=== PATIENT | male | born 1935 | race Caucasian/White ===

== ENCOUNTER 2016-06-21 20:59 | Inpatient (IN) | payer MEDICARE, MEDICAID ==
[~2016-06-21] VITALS: Ht 170.2 cm; Wt 57.6 kg
[~2016-06-21 20:59] MED LIST: AMIODARONE200 MG; AMLODIPINE10 MG; LIPITOR10 MG; MEDROL 4MG. DOSE4 MG PO; QUINAPRIL20 MG
[2016-06-21 21:03] VITALS: BP 142/73
[2016-06-21] MEDS ORDERED: BISOPROLOL 5MG T5 MG PO (21:14)
[2016-06-21] MEDS ORDERED: AMLODIPINE BES10 MG PO (21:14)
[2016-06-21] MEDS ORDERED: QUINAPRIL40 MG PO (21:14)
[2016-06-21] MEDS ORDERED: ATORVASTATIN CA10 M1 PO (21:14)
[2016-06-21] MEDS ORDERED: ASPIRIN ADULT L81 M3 PO (21:15)
[2016-06-21 21:50] LABS: HEMOGLOBIN 10.3 g/dL (14.1-18.0); LYMPH % 22.5 % (10-50)
--- NOTE | 2016-06-21 22:04 | Emergency Room Report ---
History of Present Illness Time Seen by [id number] Presenting Problem in Triage Pt arrived:Walked Presenting Problem:PT COMPLAINING OF FEELING WEAK AND SHORT OF AIR. PT STATES THAT HE HAD A FLU AND PNEUMONIA SHOT LAST WEEK AND HAS NOT BEEN FEELING WELL SINCE THEN. PT STATES THAT HE HAS ALSO BEEN FALLING FREQUENTLY. PT DENIES ANY INJURIES. PT WITH OLD BRUISING TO HIS FACE THAT HE STATES HAPPENED 1 WEEK AGO. Onset of symptoms date/time:/ or onset unknown for:MEDICAL HX UNKNOWN Treatment Prior to Arrival: POSTING CLERK Provided by: Sepsis Risk Assessment: Temp: 98.2 B/P: 145/71 MAP: 96 Pulse: 63 Resp: 18 Recent fever? N Clinical Suspician of Infection? N Mental Status: 1 - Regular (Normal Baseline) Sepsis Risk:Low Sepsis Risk Have you (or family members/close friends) recently traveled outside the [place]? N If Yes, where/when: Have you had exposure to infectious disease within the past month? N TB? Other? Specify: Source patient, RN notes reviewed, family, old records Exam Limitations poor historian Comment pt with sob and leg edema with no chest pain or syncope but has falls - Cardiac Chest Pain Chest pain indicative of cardiac No Timing/Duration this evening Severity moderate ALLERGIES Coded Allergies: No Known Allergies (06/21/16) Home Medications Reported Medications BISOPROLOL FUMARATE (Bisoprolol 5MG) 5 MG PO DAILY #30 Amlodipine Besylate (Amlodipine Besylate) 10 MG PO DAILY #30 Quinapril Hcl (Quinapril HCl) 40 MG PO DAILY #30 Atorvastatin Calcium 10 MG PO DAILY #30 Aspirin (Aspirin EC) 81 MG PO DAILY #30 History Medical History General CAD? Yes Angina: No MA: No Hypertension? Yes Hyperlipidemia? Yes CHF? No DVT? No PE? No COPD? No Asthma? No Anemia? No GERD? No Gastric ulcers? No GI Bleed? No Hernia? No Thyroid Problems? No Hypothyroidism? No CVA? No Seizures? No Diabetes? No Renal Insuffiency? No End Stage Renal Disease? No UTI? No Stones? No BPH? No GB Disease: No Nephritic Syndrome? No Asplenia? No Hepatitis? No Sickle Cell Disease? No Arthritis? No Migraines? No Cataracts? No Glaucoma? No MRSA? No HIV? No TB? No Anxiety? No Depression? No Cancer? No More? No Immunization Hx DT/Tetanus NOT SURE Surgical Hx Previous Surgery?Y APPY >18 YRS AGO 5 BYPASS HEART SURGERY CARDIAC STENTS Family History Family Hx Diabetes No CAD No Hypertension No Cancer No TB No Social History Smoking Hx Smoker: Never Smoker Tobacco: No Type N/A Are you/the child exposed to second-hand smoke: No Alcohol Alcohol: No Drugs none Review of Systems All Other Systems Reviewed and Negative Constitutional denies fever Eyes denies drainage ENT denies: ear pain, epistaxis, throat pain. Respiratory denies cough, shortness of breath, denies wheezing Cardiovascular see HPI, denies chest pain, denies palpitations, denies syncope, other Gastrointestinal denies abdominal pain Genitourinary denies: dysuria, frequency, hesitancy. Musculoskeletal denies back pain, denies joint pain, denies joint swelling, denies neck pain Skin denies rash Psychiatric/Neurological denies headache, denies seizure Physical Exam Vital Signs Vital Signs Date Time Temp Pulse Resp B/P Pulse O2 O2 Flow FiO2 Ox Delivery Rate 06/21 2258 90 06/21 2257 65 18 130/68 90 06/21 2144 63 18 145/71 90 06/21 2142 67 18 145/71 92 06/21 2103 98.2 74 18 142/73 90 - WBC >12,000 or <4,000 or 10% bands? 2 or more SIRS Criteria Met? B/P:130/68 MAP:96 Creatinine >2.0? UA output<0.5ml/kg/hr for 2 hrs? Platelet count >100,000? Lactate >2.0mmol/1? INR >1.2 or PTT > than 60 sec? Evidence of Organ Dysfunction? Provider documented clinical suspician of infection? N Sepsis Criteria Count: 0 Sepsis Risk: Low Sepsis Risk General Appearance no apparent distress Eye Exam - bilateral eye PERRL, bilateral eye EOMI Ear, Nose, Throat normal ENT inspection Neck supple Respiratory Status No: respiratory distress. Lung Sounds bilateral: decreased breath sounds. 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 No Results/Orders Laboratory Tests 06/21/162251: Stool Occult Blood NEGATIVE 06/21/162124: Sodium 142, Potassium 4.9, Chloride 107, Carbon Dioxide 24, BUN 51 H, Creatinine 2.4 H, Estimated Creat Clear 20 L, Estimated GFR (MDRD) 26, Glucose 115 H, Calcium 8.3 L, Total Bilirubin 0.3, AST 48 H, ALT 48, Alkaline Phosphatase 109, Creatine Kinase 163, CK-MB (CK-2) Rel Index 2.3, CK and CKMB Interp 3.8 H, Troponin I 0.03, B-Natriuretic Peptide 759 H, Total Protein 7.8, Albumin 3.6, Globulin 4.2 H, Albumin/Globulin Ratio 0.9 L, PT 11.4, INR 1.07, WBC 8.7, RBC 4.21 L, Hgb 10.3 L, Hct 33.7 L, MCV 79.9 L, RDW 14.3, Plt Count 224, MPV 9.6, Gran % 66.8, Gran # 5.8, Lymphocytes % 22.5, Monocytes % 9.3, Eosinophils % 1.2, Basophils % 0.3, Lymphocytes # 2.0, Monocytes # 0.8, Eosinophils # 0.1, Basophils # 0.0, PUBS MCHC 30.7 L, MCH 24.5 L, Influenza Type A Ag NOT DETECTED, Influenza Type B Ag NOT DETECTED Current Medication Orders Sig/Felipa Start time Last Medication Dose Route Stop Time Status Admin Furosemide 80 MG ONCE ONE 06/21 2315 AC IV 06/21 231 Furosemide 0 .STK-MED ONE 06/21 2301 DC .ROUTE Sodium Chloride 10 ML PRN PRN 06/21 2129 AC IV 06/22 2115 Sodium Chloride 10 ML PRN PRN 06/21 2129 AC IV 06/22 2115 Orders Procedure Date/time Status DIET-NOTHING BY MOUTH 06/22 B Active Decision to admit 06/21 230 Active OXYGEN PER NURSE 06/21 2256 Active PROTHROMBIN TIME 06/21 225 Complete STOOL OCCULT BLOOD 06/[address] CHEST W/O CONTRAST 06/[address] SCAN REQ 06/21 2203 Complete INFLUENZA A&B ANTIGENS 01/12 2126 Complete ELECTROCARDIOGRAM REQUEST 06/21 2115 Active CHEST(2 VIEWS-NOT PORTABLE) 06/21 2115 Active IV SALINE LOCK 06/21 2115 Active URINALYSIS/COMPLETE 06/21 2115 Active CBC WITH AUTO DIFF 06/21 2115 Complete CARDIAC ENZYMES 06/21 2115 Complete CHEM 12 PROFILE 06/21 2115 Complete BRAIN NATRIURETIC PEPTIDE 06/21 2115 Complete CM/EKG CM/quality measurement specialist Rhythm Atrial Fibrillation EKG no EKG for comparison, non-spec. ST/Twave chgs XRAY/CT/US XRAY/CT/US 1 XRAY chest XR interpretation by reviewed by me Xray Results abnormal (effusions) XRAY/CT/US [address] interpretation by discussed w/radiologist Time results known: 2307 CT Results abnormal (see report) Departure Departure Time of Disposition 2299 Disposition Still a Patient Clinical Impression Primary Impression: CHF (congestive heart failure) Qualifiers: Congestive heart failure type: combined Congestive heart failure chronicity: acute on chronic Qualified Code: I50.43 - Acute on chronic combined systolic (congestive) and diastolic (congestive) heart failure Secondary Impressions: Anemia Qualifiers: Anemia type: unspecified type Qualified Code: D64.9 - Anemia, unspecified Atrial fibrillation Qualifiers: Atrial fibrillation type: unspecified Qualified Code: I48.91 - Unspecified atrial fibrillation Falls Qualifiers: Encounter type: initial encounter Qualified Code: W19.XXXA - Unspecified fall, initial encounter History of prosthetic aortic valve Renal insufficiency Condition STABLE Referrals Eric Mcallister MD (Family) discussed with dr veronika BLACKWELL Critical Care Critical Care No at 2308
[2016-06-21 22:52] LABS: STOOL OCCULT BLOOD NEGATIVE (NEG)
[2016-06-22] VITALS (8 sets, daily range): BP systolic 108–171; BP diastolic 63–78
[2016-06-22 00:34] LABS: URINE BILIRUBIN - DIPSTICK NEGATIVE (NEG); URINE BLOOD TRACE-INTACT (NEG)
[2016-06-22 05:52] LABS: HEMOGLOBIN 9.6 g/dL (14.1-18.0); LYMPH # 1.6 K/mm3 (0.7-4.5)
--- NOTE | 2016-06-22 06:39 | HISTORY AND PHYSICAL REPORT ---
Demographics: Admit date: 06/22/16 Chief complaint: Shortness of breath and fall PRIMARY DIAGNOSIS: CHF Allergies: Coded Allergies: No Known Allergies (06/21/16) History of present illness: History of present illness: 80-year-old male with history of hypertension, hyperlipidemia, aortic valve replacement with porcine valve, coronary artery bypass grafting presented to the emergency department after 2 falls at home. Patient is a poor historian. This morning there is no family at bedside. Patient reports 2 falls at home and he has bruising on the LEFT side of his face to show it. He reports that he was so weak he fell. He was brought to the ER last night family had reported increasing edema in the lower extremities as well. Patient denies ever having chest pain but admits to shortness of breath. In the emergency department his creatinine was elevated at 2.4. He did have 3+ edema in the lower extremities and this does extend to the knees, chest x-ray showed bilateral pleural effusions. Patient has been admitted and was given Lasix 80 mg IV in the ER. Nursing staff reports he has diuresed about 1600 ML's since then. He's been admitted for workup to this and primary working diagnosis is congestive heart failure. Past medical history: Family HX Family Hx Insignificant No Diabetes No CAD No Hypertension No Cancer No TB No Immunization HX DT/Tetanus NOT SURE Flu 2015-FSN Pneumonia Received In Past TB Test in last year No General CAD? Yes Angina: No NV: No Hypertension? Yes Hyperlipidemia? Yes CHF? Yes DVT? No PE? No COPD? No Asthma? No Anemia? No GERD? No Gastric ulcers? No GI Bleed? No Hernia? No Thyroid Problems? No Hypothyroidism? No CVA? No Seizures? No Diabetes? No Renal Insuffiency? No UTI? No Stones? No BPH? No GB Disease: No Nephritic Syndrome? No Asplenia? No Hepatitis? No Sickle Cell Disease? No Arthritis? No Migraines? No Cataracts? No Glaucoma? No MRSA? No HIV? No TB? No Anxiety? No Depression? No Cancer? No More? No Past Surgical HX Previous Surgery?Y APPY >18 YRS AGO 5 [facility] HEART SURGERY CARDIAC STENTS AORTIC VALVE REPLACEMENT Current home meds: Reported Medications BISOPROLOL FUMARATE (Bisoprolol 5MG) 5 MG PO DAILY #30 Amlodipine Besylate (Amlodipine Besylate) 10 MG PO DAILY #30 Quinapril Hcl (Quinapril HCl) 40 MG PO DAILY #30 Atorvastatin Calcium 10 MG PO DAILY #30 Aspirin (Aspirin EC) 81 MG PO DAILY #30 Social Hx: Smoking HX Tobacco No Type CHEW Are you/the child exposed to second-hand smoke: No Alcohol Alcohol: No Hx of Drug Use Drug Use? No Patient's support system is poor Review of systems: Constitutional No: chills, diaphoresis, fever. Respiratory shortness of breath, SOB with excertion, SOB at rest. Cardiovascular No chest pain, No palpitations Gastrointestinal/Abdominal no symptoms reported Genitourinary no symptoms reported. Musculoskeletal no symptoms reported. Neurological Yes: no symptoms reported. Exam: Lab data for last 24 hours: Laboratory Tests 06/22/16 0505: TSH 15.57 H, Thyroxine (T4) 7.9 06/22/16 0505: Creatine Kinase 165, CK-MB (CK-2) Rel Index 3.9, CK and CKMB Interp 6.4 H, Troponin I 0.03 06/22/16 0505: Sodium 142, Potassium 5.1, Chloride 108 H, Carbon Dioxide 23, BUN 52 H, Creatinine 2.4 H, Estimated Creat Clear 21 L, Estimated GFR (MDRD) 26, Glucose 110 H, Calcium 8.4 L, WBC 9.4, RBC 3.89 L, Hgb 9.6 L, Hct 31.4 L, MCV 80.6 L, RDW 14.5, Plt Count 197, MPV 9.0, Gran % 74.3, Gran # 7.0, Lymphocytes % 17.0 , Monocytes % 8.2, Eosinophils % 0.4, Basophils % 0.1, Lymphocytes # 1.6, Monocytes # 0.8, Eosinophils # 0.0, Basophils # 0.0, PUBS MCHC 30.6 L, MCH 24.6 L 06/22/16 0235: Creatine Kinase 163, CK-MB (CK-2) Rel Index 2.6, CK and CKMB Interp 4.3 H, Troponin I 0.03 06/22/16 0025: Urine Color YELLOW, Urine Appearance CLEAR, Urine pH 6.0, Ur Specific [place] 1.015, Urine Protein 1+ H, Urine Ketones NEGATIVE, Urine Blood TRACE-INTACT, Urine Nitrate NEGATIVE, Urine Bilirubin NEGATIVE, Urine Urobilinogen 0.2, Ur Leukocyte Esterase NEGATIVE, Urine RBC 3-5, Urine Bacteria 1+, Urine Glucose NEGATIVE 06/21/162251: Stool Occult Blood NEGATIVE 06/21/162124: Sodium 142, Potassium 4.9, Chloride 107, Carbon Dioxide 24, BUN 51 H, Creatinine 2.4 H, Estimated Creat Clear 20 L, Estimated GFR (MDRD) 26, Glucose 115 H, Calcium 8.3 L, Total Bilirubin 0.3, AST 48 H, ALT 48, Alkaline Phosphatase 109, Creatine Kinase 163, CK-MB (CK-2) Rel Index 2.3, CK and CKMB Interp 3.8 H, Troponin I 0.03, B-Natriuretic Peptide 759 H, Total Protein 7.8, Albumin 3.6, Globulin 4.2 H, Albumin/Globulin Ratio 0.9 L, PT 11.4, INR 1.07, WBC 8.7, RBC 4.21 L, Hgb 10.3 L, Hct 33.7 L, MCV 79.9 L, RDW 14.3, Plt Count 224, MPV 9.6, Gran % 66.8, Gran # 5.8, Lymphocytes % 22.5, Monocytes % 9.3, Eosinophils % 1.2, Basophils % 0.3, Lymphocytes # 2.0, Monocytes # 0.8, Eosinophils # 0.1, Basophils # 0.0, PUBS MCHC 30.7 L, MCH 24.5 L, Influenza Type A Ag NOT DETECTED, Influenza Type B Ag NOT DETECTED Admission vital signs: 1ST Vital Signs Result Date Time Pulse Ox 90 06/21 2102 B/P 142/73 06/21 2102 Temp 98.2 06/21 2102 Pulse 74 06/21 2102 Resp 18 06/21 2102 O2 Flow Rate 2 06/21 2326 O2 Delivery OXYGEN 06/22 0025 Additional information: Patient is awake and alert this morning. While sleeping he appeared to be working a little hard to breathe once he awoke any signs of dyspnea resolved. Head exam reveals bruising on the LEFT side of the face from his fall. ENT exam reveals grossly normal years, edentulous oropharynx. Neck has no lymphadenopathy or jugular venous distention. Lungs revealed distant breath sounds at the bases with fair aeration anteriorly, no rales or rhonchi. Heart has a regular rate and rhythm with a prominent S2 from his porcine valve. Extremities reveal 2+ edema at the level of the knee. Patient is wearing JOSE ROBERTO hose. Patient is able to move all extremities. Mental status: Patient is oriented to person and place. Plan: Problem List 1. Falls 2. CHF (congestive heart failure) 3. Renal insufficiency 4. Anemia 5. History of prosthetic aortic valve Plan: 1. Echocardiogram, cardiology consult 2. Lasix 80 mg IV has been given once and I will repeat a dose of Lasix this morning with careful monitoring of his BUN and creatinine 3. Serial complete blood counts 4. Initiate thyroid replacement therapy 5. Renal ultrasound due to his elevated creatinine
--- NOTE | 2016-06-22 07:25 | PHARMACY CLINIC NOTE ---
Patient Demographics Patient Demographics Admission date: 06/22/16 Date: 06/22/16 Time: 0725 Allergies Coded Allergies: No Known Allergies (06/21/16) HEIGHT- FT: 5 IN: 7.00 K.[id number] VTE General Information Labs: Laboratory Tests 06/22 06/21 0505 2125 Coagulation PT (9.4 - 11.8 SECONDS) 11.4 INR (0.9 - 1.1) 1.07 Hematology Hgb (14.1 - 18.0 g/dL) 9.6 L 10.3 L Hct (42.0 - 52.0 %) 31.4 L 33.7 L Plt Count (142 - 424 K/mm3) 197 224 Disclaimer The following section includes nursing documentation that has been pulled in for pharmacy review. Patient's VTE score: 2 Patient's VTE Risk: VERY LOW RISK Clinical trial participant? No VTE prophylaxis [id number] VTE prophylaxis ordered? Yes Type of prophylaxis/treatment: JOSE ROBERTO at 0725
--- NOTE | 2016-06-22 08:04 | CONSULT NOTE ---
Standard Demographics Patient Demo Date of Consultation: 06/22/16 Referring Provider: Eric Mcallister MD Reason for Consultation: CHF, CM, CAD PRIMARY DIAGNOSIS: CHF Problem list Problem list: 1. Coronary artery disease and valvular heart disease A. History of five-vessel coronary artery bypass grafting with aortic valve replacement some time in the last 5-16 years. B. Echocardiogram, 1999, severe aortic stenosis with moderate MR and TR with severe cardiomyopathy and ejection fraction of 20-25 percent. 2. Hypertension 3. Hyperlipidemia 4. Poor historian 5. Possible new onset atrial fibrillation, June/2016 6. Fall risk 7. Hypothyroidism History of present illness: History of present illness: 80-year-old male with history of hypertension, hyperlipidemia, aortic valve replacement with porcine valve, coronary artery bypass grafting presented to the emergency department after 2 falls at home. Patient is a poor historian. This morning there is no family at bedside. Patient reports 2 falls at home and he has bruising on the LEFT side of his face to show it. He reports that he was so weak he fell. He was brought to the ER last night family had reported increasing edema in the lower extremities as well. Patient denies ever having chest pain but admits to shortness of breath. In the emergency department his creatinine was elevated at 2.4. He did have 3+ edema in the lower extremities and this does extend to the knees, chest x-ray showed bilateral pleural effusions. Patient has been admitted and was given Lasix 80 mg IV in the ER. Nursing staff reports he has diuresed about 1600 ML's since then. He's been admitted for workup to this and primary working diagnosis is congestive heart failure. The above per Dr. Mcallister. The patient denies any chest pains. His main complaint is shortness of breath and lower extremity edema has been gradually worsening over the last couple weeks. Past Medical History: General: Hypertension Yes CVA No Seizures No TB No COPD No Asthma No Diabetes No Angina No CT No Hyperlipidemia Yes Urinary No Cancer No Rheumatic H.D. No Ulcers No MRSA No GB Disease No Past Surgical HX: Previous Surgery?Y APPY >18 YRS AGO 5 BYPASS HEART SURGERY CARDIAC STENTS AORTIC VALVE REPLACEMENT Allergies Coded Allergies: No Known Allergies (06/21/16) Home medications: Reported Medications BISOPROLOL FUMARATE (Bisoprolol 5MG) 5 MG PO DAILY #30 Amlodipine Besylate (Amlodipine Besylate) 10 MG PO DAILY #30 Quinapril Hcl (Quinapril HCl) 40 MG PO DAILY #30 Atorvastatin Calcium 10 MG PO DAILY #30 Aspirin (Aspirin EC) 81 MG PO DAILY #30 Current Medications: Current Medications Amlodipine Besylate 10 MG DAILY PO Aspirin 81 MG DAILY PO Atorvastatin Calcium 10 MG DAILY PO Bisoprolol Fumarate 5 MG DAILY PO Levothyroxine Sodium 0.075 MG DAILY PO Polyethylene Glycol 17 GM DAILY PO Sodium Chloride 10 ML PRN PRN IV Miscellaneous Information 1 EACH ONCE ONE * (UNV) Acetaminophen 650 MG Q4HP PRN PO Ondansetron HCl 4 MG Q6HP PRN IV Sodium Chloride 1,000 ML .Q25H IV (DC) Furosemide 80 MG ONCE ONE IV (DC) Furosemide 0 .STK-MED ONE .ROUTE (DC) Sodium Chloride 10 ML PRN PRN IV (DC) Sodium Chloride 10 ML PRN PRN IV Immunization HX DT/Tetanus NOT SURE Flu 2015-FSN Pneumonia RECEIVED IN PAST TB Test in last year No Family history Family HX Family Hx Insignificant No Diabetes No CAD No Hypertension No Cancer No TB No Social Hx: Smoking HX Tobacco No Type CHEW Are you/the child exposed to second-hand smoke: No Alcohol Alcohol: No Hx of Drug Use Drug Use? No Review of systems: Constitutional weakness. Respiratory see HPI, shortness of breath, SOB with excertion, SOB at rest. Cardiovascular No no symptoms reported Gastrointestinal/Abdominal No no symptoms reported Genitourinary No: no symptoms reported. Musculoskeletal No: no symptoms reported. Neurological No: no symptoms reported. Exam: Admission Vital Signs: 1ST Vital Signs Result Date Time Pulse Ox 90 06/21 2102 B/P 142/73 06/21 2102 Temp 98.2 06/21 2102 Pulse 74 06/21 2102 Resp 18 06/21 2102 O2 Flow Rate 2 06/21 2326 O2 Delivery OXYGEN 06/22 0025 Last Vital Signs: Vital Signs Result Date Time O2 Flow Rate 4 06/22 0742 Pulse Ox 90 06/22 0642 B/P 158/77 06/22 741 O2 Delivery OXYGEN 06/22 741 Temp 98.3 06/22 741 Pulse 65 06/22 0742 Resp 22 06/22 0742 Exam General appearance: alert, awake Neck: no carotid bruit, no JVD Cardiovascular: irregularly irregular versus regular with frequent ectopy. Respiratory: decreased breath sounds at the bases bilaterally. ABD: soft, no tenderness Extremities: moves all, 2+ edema of the lower extremities below the knees. Neuro: alert, intact Laboratory data: Laboratory Tests 06/22/16 0505: TSH 15.57 H, Thyroxine (T4) 7.9 06/22/16 0505: Creatine Kinase 165, CK-MB (CK-2) Rel Index 3.9, CK and CKMB Interp 6.4 H, Troponin I 0.03 06/22/16 0505: Sodium 142, Potassium 5.1, Chloride 108 H, Carbon Dioxide 23, BUN 52 H, Creatinine 2.4 H, Estimated Creat Clear 21 L, Estimated GFR (MDRD) 26, Glucose 110 H, Calcium 8.4 L, WBC 9.4, RBC 3.89 L, Hgb 9.6 L, Hct 31.4 L, MCV 80.6 L, RDW 14.5, Plt Count 197, MPV 9.0, Gran % 74.3, Gran # 7.0, Lymphocytes % 17.0 , Monocytes % 8.2, Eosinophils % 0.4, Basophils % 0.1, Lymphocytes # 1.6, Monocytes # 0.8, Eosinophils # 0.0, Basophils # 0.0, PUBS MCHC 30.6 L, MCH 24.6 L 06/22/16 0235: Creatine Kinase 163, CK-MB (CK-2) Rel Index 2.6, CK and CKMB Interp 4.3 H, Troponin I 0.03 06/22/16 0025: Urine Color YELLOW, Urine Appearance CLEAR, Urine pH 6.0, Ur Specific [place] 1.015, Urine Protein 1+ H, Urine Ketones NEGATIVE, Urine Blood TRACE-INTACT, Urine Nitrate NEGATIVE, Urine Bilirubin NEGATIVE, Urine Urobilinogen 0.2, Ur Leukocyte Esterase NEGATIVE, Urine RBC 3-5, Urine Bacteria 1+, Urine Glucose NEGATIVE 06/21/16 2252: Stool Occult Blood NEGATIVE 06/21/165: Sodium 142, Potassium 4.9, Chloride 107, Carbon Dioxide 24, BUN 51 H, Creatinine 2.4 H, Estimated Creat Clear 20 L, Estimated GFR (MDRD) 26, Glucose 115 H, Calcium 8.3 L, Total Bilirubin 0.3, AST 48 H, ALT 48, Alkaline Phosphatase 109, Creatine Kinase 163, CK-MB (CK-2) Rel Index 2.3, CK and CKMB Interp 3.8 H, Troponin I 0.03, B-Natriuretic Peptide 759 H, Total Protein 7.8, Albumin 3.6, Globulin 4.2 H, Albumin/Globulin Ratio 0.9 L, PT 11.4, INR 1.07, WBC 8.7, RBC 4.21 L, Hgb 10.3 L, Hct 33.7 L, MCV 79.9 L, RDW 14.3, Plt Count 224, MPV 9.6, Gran % 66.8, Gran # 5.8, Lymphocytes % 22.5, Monocytes % 9.3, Eosinophils % 1.2, Basophils % 0.3, Lymphocytes # 2.0, Monocytes # 0.8, Eosinophils # 0.1, Basophils # 0.0, PUBS MCHC 30.7 L, MCH 24.5 L, Influenza Type A Ag NOT DETECTED, Influenza Type B Ag NOT DETECTED Plan: Assessment: 1. Systolic congestive heart failure, multifactorial. Possible new onset atrial fibrillation with controlled ventricular response in the setting of chronic severe cardiomyopathy. Preliminary echocardiogram today reveals continued ejection fraction of 20-25 percent. Large LEFT pleural effusion noted. Recommend continue cautious diuresis with careful monitoring of renal status. Cardiac troponins have been normal. Recommend monitoring on telemetry over the weekend due to history of falls to rule out cardiac etiology. 2. Atrial fibrillation, question new onset which may be exacerbating factor in the patient's presentation of worsening congestive heart failure. Despite elevated CHADS-VASc score, with recent falls with facial trauma and bruising, would not recommend anticoagulation therapy. Rate is well controlled on current medical therapy. Monitor telemetry over the weekend to rule out bradycardia or significant pauses as a source for his falls. 3. Hypertension, fair control at this time. 4. Poor historian 5. Bilateral pleural effusions, consider thoracentesis if clinical presentation does not improve with medical therapy. 6. Hypothyroidism with elevated TSH this admission. Replacement therapy being adjusted per Dr. Mcallister. 7. Anemia, chronic. 8. 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 Recommendations: Patient was seen with Dr. Liriano. See above. at 1156
--- NOTE | 2016-06-22 10:31 | RADIOLOGY REPORT PS360 ---
CHEST(2 VIEWS-NOT PORTABLE) ORDERING PHYSICIAN : Amy Rasheed MD PATIENT AGE: 80 years GENDER: Male INDICATION: SHORTNESS OF BREATH decreased breath sounds TECHNIQUE: PA and lateral chest COMPARISON: PA and lateral chest 08/18/2008 FINDINGS Marked interval change since previous CXR chest 08/18/2008 Bilateral pleural effusions. Prominent Bibasal airspace disease. Cephalization & CHF . Cardiomegaly. Sternotomy. Aortic valve replacement. CABG. Calcified aortic knob No acute nor significant findings at T-spine. Degenerative changes. Chest wall intact. ------IMPRESSION: ----- 1. CHF. Cardiomegaly. Sternotomy. CABG. Aortic valve replacement 2. Moderate/generous Bilateral pleural effusions. 3. Prominent Bibasilar airspace disease. . Mainly due to basilar atelectasis but cannot exclude pneumonia.
--- NOTE | 2016-06-22 12:07 | RADIOLOGY REPORT PS360 ---
US [id number] ORDERING PHYSICIAN : Eric Mcallister MD PATIENT AGE: 80 years GENDER: Male INDICATION: ELEVATED CREATININE, EDEMA Renal failure TECHNIQUE: Ultrasound both kidneys COMPARISON: None FINDINGS --------- Difficult exam due to the patient's breathing. Prominent bilateral pleural effusions encountered. Spleen was included on these survey images and appears size. 7.9 cm length Diffuse cortical thinning of both kidneys. The diminished color Doppler flow both kidneys. Right kidney:. 8.9 cm in length as 3.6 cm x 0.2 cm. Cortical thinning most evident towards upper pole. Left kidney: 7.4 cm X 4 cm x 4 cm. Cortical thinning most evident towards upper pole IMPRESSION: No hydronephrosis nor mass. Diffuse cortical thinning bilaterally, most pronounced towards upper pole bilateral Kidneys adequate but Modest size kidneys bilateral.
--- NOTE | 2016-06-22 12:29 | RADIOLOGY REPORT PS360 ---
CT CHEST W/O CONTRAST ORDERING PHYSICIAN : Eric Mcallister MD PATIENT AGE: 80 years GENDER: Male INDICATION: COUGH 80 Short of breath TECHNIQUE: Helical CT scanning performed the chest. No oral or IV contrast utilized. COMPARISON: PA lateral chest 06/21/2016 FINDINGS Large bilateral pleural effusions most dominant finding. Right chest Prominent atelectasis and consolidation most evident at the RLL. Marked volume loss RLL with air bronchograms throughout; cannot exclude associated pneumonia but suspect appearance mainly due to compression atelectasis from the large right pleural effusion. The large right pleural the effusion tracks along the major fissure as well Left chest Also note airspace disease & atelectasis left lung,. Although airspace disease is less pronounced at left chest . On axial images there is note of minimal infiltrate I believe associated atelectasis at left upper lobe and seen just anterior to the major fissure throughout the left midlung on axial images.. Also noted in focal area of airspace disease and possible pneumonic infiltrate disease just above left hemidiaphragm. The sagittal view also demonstrates a long area of linear scarring & atelectasis with some fluid along this scar on sagittal slice 69. The major fissure resides posterior to this. Cardiomegaly. Multichamber enlargement. Particularly note left atrial enlargement left ventricular and right atrial enlargement. Echocardiogram may be of benefit to correlate no pericardial effusion Aortic valve replacement . Dilated ascending aorta measures up to 4.2 cm diameter maximally. aortic arch tapers to 3 cm diameterDiffuse atherosclerotic calcifications at aorta . Diffuse calcified coronary arteries. I believe there is vascular congestion and cephalization suggestive of CHF this is actually better appreciated on plain film Kyphosis. Gynecomastia. ---IMPRESSION 1. large bilateral pleural effusions. Right greater than left 2. CHF .. Prominent cardiomegaly. 3. Bibasilar airspace disease: Right base: Most pronounced volume loss & consolidation is seen at at RLL- I suspect may reflects impression atelectasis here. Left lung.. The generous left pleural effusion is not as pronounced as the right.. Airspace disease less pronounced at the left base-reflects atelectasis but with question of a associated patchy pneumonic infiltrate just above left hemidiaphragm as well as just anterior to the major fissure on left.. 4. Dilated ascending aorta measuring~ 4.2 cm diameter. Aortic valve replacement. CABG.
[2016-06-23] VITALS (7 sets, daily range): BP systolic 141–156; BP diastolic 68–89
[2016-06-23 07:25] LABS: HEMOGLOBIN 10.4 g/dL (14.1-18.0); LYMPH # 1.2 K/mm3 (0.7-4.5); LYMPH % 12.4 % (10-50)
--- NOTE | 2016-06-23 07:52 | ACUTE CARE PROGRESS NOTE (QUA) ---
Progress Notes Subjective Date 06/23/16 Time 0750 Note Patient resting comfortably and states that he feels fairly well. On exam has diminished air sounds in both bases, mild crackles. However symmetric air movement. Heart rate regular. Previous murmur noted. No edema noted. Facial bruising continues to improve according to nursing staff. Objective Findings Laboratory Tests 06/23/16 0605: Sodium 144, Potassium 5.2 H, Chloride 108 H, Carbon Dioxide 23, BUN 51 H, Creatinine 2.3 H, Estimated Creat Clear 21 L, Estimated GFR (MDRD) 27, Glucose 82, Calcium 9.1, WBC 9.4, RBC 4.21 L, Hgb 10.4 L, Hct 34.2 L, MCV 81.2 L, RDW 14.7, Plt Count 210, MPV 9.7, Gran % 80.5 H, Gran # 7.6, Lymphocytes % 12.4 , Monocytes % 6.7, Eosinophils % 0.3, Basophils % 0.1, Lymphocytes # 1.2, Monocytes # 0.6, Eosinophils # 0.0, Basophils # 0.0, PUBS MCHC 30.4 L, MCH 24.7 L Last VS-Temp:98.4 B/P:156/72 Pulse:66 Resp:22 SaO2:93 OXYGEN Last weight lbs:134 oz:4 K.895 Method:Bed Scales Reviewed: allergies, medications, vital signs, lab results Assessment/Plan Problem List 1. Falls Qualifiers: Encounter type: initial encounter Qualified Code: W19.XXXA - Unspecified fall, initial encounter 2. 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 Renal insufficiency 4. Anemia Qualifiers: Anemia type: unspecified type Qualified Code: D64.9 - Anemia, unspecified 5. History of prosthetic aortic valve Patient condition Improving Plan: continue current care, another IV diuresis dose. Watch potassium carefully tomorrow. Creatinine stable. This inpt stay is expected to cross 2 MNs from start of care Yes at 0751
[2016-06-24] VITALS (7 sets, daily range): BP systolic 145–164; BP diastolic 61–94
--- NOTE | 2016-06-24 07:59 | ACUTE CARE PROGRESS NOTE (QUA) ---
Progress Notes Subjective Date 06/24/16 Time 0758 Note Patient did well with higher dose Lasix yesterday, diuresing almost 2 L of fluid. This morning he is once again urinating, feels like his breathing is "a little bit better." Is alert and pleasant, talkative. Lungs have a little bit better air entry in both bases but still with diminished airway sounds on the LEFT. No change in heart rate. No edema noted. Objective Findings Last VS-Temp:97.9 B/P:151/61 Pulse:75 Resp:18 SaO2:90 OXYGEN Last weight lbs:126 oz:9 K.408 Method:Bed Scales Assessment/Plan Problem List 1. Falls Qualifiers: Encounter type: initial encounter Qualified Code: W19.XXXA - Unspecified fall, initial encounter 2. 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 Renal insufficiency 4. Anemia Qualifiers: Anemia type: unspecified type Qualified Code: D64.9 - Anemia, unspecified 5. History of prosthetic aortic valve Patient condition Improving Plan: continue current care, check chest x-ray tomorrow to monitor effusion. Watch for potassium and creatinine changes today on labs. This inpt stay is expected to cross 2 MNs from start of care Yes at 0757
[2016-06-25] VITALS (17 sets, daily range): BP systolic 111–174; BP diastolic 49–85
--- NOTE | 2016-06-25 06:53 | ACUTE CARE PROGRESS NOTE (QUA) ---
Progress Notes Subjective Date 06/25/16 Time 0649 Note Patient has no complaints. He claims he is feeling well. He is still having some dyspnea. He denies any chest pain. While sleeping he appears comfortable. Upon awakening with conversation he appears to become a little more anxious and dyspneic with mouth breathing. Oropharynx is dry. Heart is irregular. Lungs have diminished breath sounds at the bases consistent with his pleural effusions. Check chest x-ray today. If pleural effusions remain large will consult radiology for ultrasound-guided thoracentesis. Patient lives alone and I discussed chcf care versus family staying with him. I'm not sure the family's very reliable on this matter as they've not been to visit him over the weekend. He was resistant to chcf placement. I will consult PT and OT. Await a.m. labs. Objective Findings Last VS-Temp:98.0 B/P:168/80 Pulse:67 Resp:22 SaO2:95 OXYGEN Last weight lbs:125 oz:0 K.699 Method:Floor Scales I&O Past 24 Hrs-ending at 0700 06/25 0700 Intake Total 1210 Output Total 1075 Balance 135 Assessment/Plan Problem List 1. Falls Qualifiers: Encounter type: initial encounter Qualified Code: W19.XXXA - Unspecified fall, initial encounter 2. 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 Renal insufficiency 4. Anemia Qualifiers: Anemia type: unspecified type Qualified Code: D64.9 - Anemia, unspecified 5. History of prosthetic aortic valve Patient condition Stable Plan: continue current care This inpt stay is expected to cross 2 MNs from start of care Yes at 0653
--- NOTE | 2016-06-25 06:53 | ACUTE CARE PROGRESS NOTE (QUA) ---
Progress Notes Subjective Date 06/25/16 Time 0649 Note Patient has no complaints. He claims he is feeling well. He is still having some dyspnea. He denies any chest pain. While sleeping he appears comfortable. Upon awakening with conversation he appears to become a little more anxious and dyspneic with mouth breathing. Oropharynx is dry. Heart is irregular. Lungs have diminished breath sounds at the bases consistent with his pleural effusions. Check chest x-ray today. If pleural effusions remain large will consult radiology for ultrasound-guided thoracentesis. Patient lives alone and I discussed fpc care versus family staying with him. I'm not sure the family's very reliable on this matter as they've not been to visit him over the weekend. He was resistant to fpc placement. I will consult PT and OT. Await a.m. labs. Objective Findings Last VS-Temp:98.0 B/P:168/80 Pulse:67 Resp:22 SaO2:95 OXYGEN Last weight lbs:125 oz:0 K.699 Method:Floor Scales I&O Past 24 Hrs-ending at 0700 06/25 0700 Intake Total 1210 Output Total 1075 Balance 135 Assessment/Plan Problem List 1. Falls Qualifiers: Encounter type: initial encounter Qualified Code: W19.XXXA - Unspecified fall, initial encounter 2. 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 Renal insufficiency 4. Anemia Qualifiers: Anemia type: unspecified type Qualified Code: D64.9 - Anemia, unspecified 5. History of prosthetic aortic valve Patient condition Stable Plan: continue current care This inpt stay is expected to cross 2 MNs from start of care Yes at 0653
--- NOTE | 2016-06-25 08:52 | ACUTE CARE PROGRESS NOTE (QUA) ---
Progress Notes Subjective Date 06/25/16 Time 0831 Note 80 yo WM in bed eating breakfast in NAD. States he is breathing better and LE edema has resolved. Objective Findings Last VS-Temp:98.3 B/P:167/81 Pulse:77 Resp:18 SaO2:95 OXYGEN Last weight lbs:125 oz:0 K.699 Method:Floor Scales Exam General appearance: alert, awake, no acute distress Cardiovascular: irregular rate & rhythm, Telemetry shows A. fib with CVR Respiratory: Improved air movement with continued basilar decreased breath sounds. Extremities: moves all, trace edema of LE's bilaterally. Neuro: alert, oriented, speech clear Reviewed: medications, vital signs, lab results Assessment/Plan Problem List 1. Falls Qualifiers: Encounter type: initial encounter Qualified Code: W19.XXXA - Unspecified fall, initial encounter 2. CHF (congestive heart failure) Assessment/Plan: Acute on chronic with bilateral pleural effusions (R>L). Repeating CXR today. 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 Renal insufficiency Status: Chronic Assessment/Plan: Stable. 4. Anemia Assessment/Plan: Stable. Qualifiers: Anemia type: unspecified type Qualified Code: D64.9 - Anemia, unspecified 5. History of prosthetic aortic valve Assessment/Plan: Normal prosthetic valve function by echo this admission. 6. CAD (coronary artery disease), [place] coronary artery Assessment/Plan: Stable. Qualifiers: [place] vs. transplanted heart: [place] heart Associated angina: without angina Qualified Code: I25.10 - Atherosclerotic heart disease of [place] coronary artery without angina pectoris 7. Hx of CABG 8. Cardiomyopathy Assessment/Plan: Echo, EF 45-55% with normal LV size. Qualifiers: Cardiomyopathy type: unspecified Qualified Code: I42.9 - Cardiomyopathy, unspecified Patient condition Stable Plan: Agree with ultrasound guided thoracentesis if pleural effusions still significant. Pt clinically improved with no evidence of cardiac arrhythmia on telemetry. Continue current meds. No anticoagulation due to falls with physical trauma. This inpt stay is expected to cross 2 MNs from start of care Yes at 0859
--- NOTE | 2016-06-25 08:52 | ACUTE CARE PROGRESS NOTE (QUA) ---
Progress Notes Subjective Date 06/25/16 Time 0831 Note 80 yo WM in bed eating breakfast in NAD. States he is breathing better and LE edema has resolved. Objective Findings Last VS-Temp:98.3 B/P:167/81 Pulse:77 Resp:18 SaO2:95 OXYGEN Last weight lbs:125 oz:0 K.699 Method:Floor Scales Exam General appearance: alert, awake, no acute distress Cardiovascular: irregular rate & rhythm, Telemetry shows A. fib with CVR Respiratory: Improved air movement with continued basilar decreased breath sounds. Extremities: moves all, trace edema of LE's bilaterally. Neuro: alert, oriented, speech clear Reviewed: medications, vital signs, lab results Assessment/Plan Problem List 1. Falls Qualifiers: Encounter type: initial encounter Qualified Code: W19.XXXA - Unspecified fall, initial encounter 2. CHF (congestive heart failure) Assessment/Plan: Acute on chronic with bilateral pleural effusions (R>L). Repeating CXR today. 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 Renal insufficiency Status: Chronic Assessment/Plan: Stable. 4. Anemia Assessment/Plan: Stable. Qualifiers: Anemia type: unspecified type Qualified Code: D64.9 - Anemia, unspecified 5. History of prosthetic aortic valve Assessment/Plan: Normal prosthetic valve function by echo this admission. 6. CAD (coronary artery disease), [place] coronary artery Assessment/Plan: Stable. Qualifiers: [place] vs. transplanted heart: [place] heart Associated angina: without angina Qualified Code: I25.10 - Atherosclerotic heart disease of [place] coronary artery without angina pectoris 7. Hx of CABG 8. Cardiomyopathy Assessment/Plan: Echo, EF 45-55% with normal LV size. Qualifiers: Cardiomyopathy type: unspecified Qualified Code: I42.9 - Cardiomyopathy, unspecified Patient condition Stable Plan: Agree with ultrasound guided thoracentesis if pleural effusions still significant. Pt clinically improved with no evidence of cardiac arrhythmia on telemetry. Continue current meds. No anticoagulation due to falls with physical trauma. This inpt stay is expected to cross 2 MNs from start of care Yes at 0859
--- NOTE | 2016-06-25 18:41 | RADIOLOGY REPORT PS360 ---
CHEST(2 VIEWS-NOT PORTABLE) post thoracentesis ORDERING PHYSICIAN : Eric Mcallister MD PATIENT AGE: 80 years GENDER: Male INDICATION: RT PLEURAL EFFUSION, S/P THOROCENTESIS TECHNIQUE: PA lateral chest COMPARISON June 25 PA and lateral view chest as well as a recent CT chest from 06/21/16 FINDINGS [address] performed by Dr. Celestin radiology A two-view chest following removal of 2.5 L of fluid from right chest shows marked improvement d with reexpansion right lung. There is still atelectasis towards right base with small right pleural effusion and blunting right CP angle.... Left chest small left pleural effusion with airspace disease just above the left hemidiaphragm at left lower lobe, left lung base. Cardiomegaly. Sternotomy. CABG. Aortic valve replacement again noted. Significant improvement of the CHF and vascular congestion since 06/25/2016 chest film IMPRESSION: ------ Right thoracentesis has removed of vascular majority of the right pleural fluid. A small amount of pleural fluid remains at right CP angle with mild atelectasis, airspace disease right base. No pneumothorax evident. Left chest small left pleural effusion with minimal airspace disease and atelectasis inferior left lung base.
--- NOTE | 2016-06-25 20:06 | RADIOLOGY REPORT PS360 ---
CHEST(2 VIEWS-NOT PORTABLE) cxr #1 at 7:30 AM ORDERING PHYSICIAN : Eric Mcallister MD PATIENT AGE: 80 years GENDER: Male INDICATION: f/u chf and effusion CHF or pleural effusion. Short of breath. TECHNIQUE: PA and lateral chest. COMPARISON is made to 06/25/2016. Chest film COMPARISON: 06/21/2015 FINDINGS Vascular congestion CHF again noted. Sternotomy CABG. Left base: there is been there is been improvement with partial clearing of the airspace disease and reexpansion of atelectasis. Minimal infiltrate persists at the left infrahilar region. Left pleural effusion has regressed and only question is seen on lateral view Right chest. Moderate/generous right pleural effusion along the lateral right lower thorax. Obscured right hemidiaphragm. Associated airspace disease at right base. IMPRESSION: ...... 1 Right chest. Persistent moderate/generous length pleural effusion evident laterally. Progressive atelectasis and airspace disease right base 2. Improvement at left lung base. Left pleural effusion & airspace disease have regressed.. Only minimal wispy infiltrate left infrahilar region persist.
[2016-06-26] VITALS (8 sets, daily range): BP systolic 134–163; BP diastolic 66–80
--- NOTE | 2016-06-26 07:01 | ACUTE CARE PROGRESS NOTE (QUA) ---
Progress Notes Subjective Date 06/26/16 Time 0658 Note Patient had RIGHT thoracentesis yesterday that resulted in 2-1/2 L of fluid being drawn off the lung. This morning he denies any shortness of breath ALTHOUGH is wearing nasal cannula oxygen. Nursing staff reports he had crackles in the lung base last night and was given some IV Lasix. Yesterday I spoke with patient in regards to senior care placement after discharge from the hospital and he was resistant although in the last 24 hours he has had a change of mind. He awakens easily this morning. He does not appear short of breath and actually appears more comfortable than he has in past mornings. Lungs have improved aeration at the bases. No change in care at this time. Care management is working on senior care placement. The patient has been encouraged to use an incentive spirometer and I have discussed this issue with nursing staff as well Objective Findings Last VS-Temp:98.3 B/P:161/77 Pulse:63 Resp:20 SaO2:97 OXYGEN Last weight lbs:124 oz:5 K.387 Method:Bed Scales Laboratory Tests 06/26/16 0600: Sodium 144, Potassium 4.8, Chloride 110 H, Carbon Dioxide 26, BUN 51 H, Creatinine 1.9 H, Estimated Creat Clear 24 L, Estimated GFR (MDRD) 34, Glucose 84, Calcium 8.7 Assessment/Plan Problem List 1. 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 Renal insufficiency Status: Chronic 3. Falls Qualifiers: Encounter type: initial encounter Qualified Code: W19.XXXA - Unspecified fall, initial encounter 4. Anemia Qualifiers: Anemia type: unspecified type Qualified Code: D64.9 - Anemia, unspecified 5. History of prosthetic aortic valve 6. CAD (coronary artery disease), [place] coronary artery Qualifiers: [place] vs. transplanted heart: [place] heart Associated angina: without angina Qualified Code: I25.10 - Atherosclerotic heart disease of [place] coronary artery without angina pectoris 7. Hx of CABG 8. Cardiomyopathy Qualifiers: Cardiomyopathy type: unspecified Qualified Code: I42.9 - Cardiomyopathy, unspecified Patient condition Stable Plan: continue current care This inpt stay is expected to cross 2 MNs from start of care Yes at 0701
--- NOTE | 2016-06-26 07:01 | ACUTE CARE PROGRESS NOTE (QUA) ---
Progress Notes Subjective Date 06/26/16 Time 0658 Note Patient had RIGHT thoracentesis yesterday that resulted in 2-1/2 L of fluid being drawn off the lung. This morning he denies any shortness of breath ALTHOUGH is wearing nasal cannula oxygen. Nursing staff reports he had crackles in the lung base last night and was given some IV Lasix. Yesterday I spoke with patient in regards to shelter placement after discharge from the hospital and he was resistant although in the last 24 hours he has had a change of mind. He awakens easily this morning. He does not appear short of breath and actually appears more comfortable than he has in past mornings. Lungs have improved aeration at the bases. No change in care at this time. Care management is working on shelter placement. The patient has been encouraged to use an incentive spirometer and I have discussed this issue with nursing staff as well Objective Findings Last VS-Temp:98.3 B/P:161/77 Pulse:63 Resp:20 SaO2:97 OXYGEN Last weight lbs:124 oz:5 K.387 Method:Bed Scales Laboratory Tests 06/26/16 0600: Sodium 144, Potassium 4.8, Chloride 110 H, Carbon Dioxide 26, BUN 51 H, Creatinine 1.9 H, Estimated Creat Clear 24 L, Estimated GFR (MDRD) 34, Glucose 84, Calcium 8.7 Assessment/Plan Problem List 1. 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 Renal insufficiency Status: Chronic 3. Falls Qualifiers: Encounter type: initial encounter Qualified Code: W19.XXXA - Unspecified fall, initial encounter 4. Anemia Qualifiers: Anemia type: unspecified type Qualified Code: D64.9 - Anemia, unspecified 5. History of prosthetic aortic valve 6. CAD (coronary artery disease), [place] coronary artery Qualifiers: [place] vs. transplanted heart: [place] heart Associated angina: without angina Qualified Code: I25.10 - Atherosclerotic heart disease of [place] coronary artery without angina pectoris 7. Hx of CABG 8. Cardiomyopathy Qualifiers: Cardiomyopathy type: unspecified Qualified Code: I42.9 - Cardiomyopathy, unspecified Patient condition Stable Plan: continue current care This inpt stay is expected to cross 2 MNs from start of care Yes at 0701
--- NOTE | 2016-06-26 07:26 | PHARMACY CLINIC NOTE ---
Patient Demographics Patient Demographics Admission date: 06/22/16 Date: 06/26/16 Time: 724 Allergies Coded Allergies: No Known Allergies (06/21/16) HEIGHT- FT: 5 IN: 7.00 K.387 VTE General Information Disclaimer The following section includes nursing documentation that has been pulled in for pharmacy review. Patient's VTE score: 2 Patient's VTE Risk: VERY LOW RISK Clinical trial participant? No VTE prophylaxis NQF [id number] VTE prophylaxis ordered? Yes Type of prophylaxis/treatment: JOSE ROBERTO at 4731
[2016-06-26 07:30] LABS: HEMOGLOBIN 10.6 g/dL (14.1-18.0)
[2016-06-26 07:31] LABS: LYMPH # 1.3 K/mm3 (0.7-4.5); LYMPH % 16.6 % (10-50)
--- NOTE | 2016-06-26 07:55 | ACUTE CARE PROGRESS NOTE (QUA) ---
Progress Notes Subjective Date 06/26/16 Time 0750 Note 80 yo WM in chair in NAD. Breathing has significantly improved during his stay, especially since thoracentesis yesterday. Objective Findings Last VS-Temp:98.3 B/P:163/74 Pulse:81 Resp:18 SaO2:97 OXYGEN Last weight lbs:124 oz:5 K.387 Method:Bed Scales Exam General appearance: alert, awake, no acute distress Cardiovascular: irregularly irregular, murmur Respiratory: improved air movement with only scant basilar rales. Extremities: moves all, no peripheral edema Neuro: alert, intact, oriented Reviewed: medications, vital signs, lab results Assessment/Plan Problem List 1. 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 Renal insufficiency Status: Chronic 3. Falls Qualifiers: Encounter type: initial encounter Qualified Code: W19.XXXA - Unspecified fall, initial encounter 4. Anemia Qualifiers: Anemia type: unspecified type Qualified Code: D64.9 - Anemia, unspecified 5. History of prosthetic aortic valve 6. CAD (coronary artery disease), [place] coronary artery Qualifiers: [place] vs. transplanted heart: [place] heart Associated angina: without angina Qualified Code: I25.10 - Atherosclerotic heart disease of [place] coronary artery without angina pectoris 7. Hx of CABG 8. Cardiomyopathy Qualifiers: Cardiomyopathy type: unspecified Qualified Code: I42.9 - Cardiomyopathy, unspecified Patient condition Stable Plan: Pt status has improved. EF 45-55% by echo with normally functioning bio- prosthetic aortic valve. A. fib is controlled. No a/c due to recurrent falls. Telemetry shows NO pauses or bradycardia. Recommend PT to help ambulate prior to discharge. Recommend SNF if patient agreeable. This inpt stay is expected to cross 2 MNs from start of care Yes at 0754
--- NOTE | 2016-06-26 07:55 | ACUTE CARE PROGRESS NOTE (QUA) ---
Progress Notes Subjective Date 06/26/16 Time 0750 Note 80 yo WM in chair in NAD. Breathing has significantly improved during his stay, especially since thoracentesis yesterday. Objective Findings Last VS-Temp:98.3 B/P:163/74 Pulse:81 Resp:18 SaO2:97 OXYGEN Last weight lbs:124 oz:5 K.387 Method:Bed Scales Exam General appearance: alert, awake, no acute distress Cardiovascular: irregularly irregular, murmur Respiratory: improved air movement with only scant basilar rales. Extremities: moves all, no peripheral edema Neuro: alert, intact, oriented Reviewed: medications, vital signs, lab results Assessment/Plan Problem List 1. 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 Renal insufficiency Status: Chronic 3. Falls Qualifiers: Encounter type: initial encounter Qualified Code: W19.XXXA - Unspecified fall, initial encounter 4. Anemia Qualifiers: Anemia type: unspecified type Qualified Code: D64.9 - Anemia, unspecified 5. History of prosthetic aortic valve 6. CAD (coronary artery disease), [place] coronary artery Qualifiers: [place] vs. transplanted heart: [place] heart Associated angina: without angina Qualified Code: I25.10 - Atherosclerotic heart disease of [place] coronary artery without angina pectoris 7. Hx of CABG 8. Cardiomyopathy Qualifiers: Cardiomyopathy type: unspecified Qualified Code: I42.9 - Cardiomyopathy, unspecified Patient condition Stable Plan: Pt status has improved. EF 45-55% by echo with normally functioning bio- prosthetic aortic valve. A. fib is controlled. No a/c due to recurrent falls. Telemetry shows NO pauses or bradycardia. Recommend PT to help ambulate prior to discharge. Recommend SNF if patient agreeable. This inpt stay is expected to cross 2 MNs from start of care Yes at 0754
--- NOTE | 2016-06-26 08:58 | RADIOLOGY REPORT PS360 ---
CHEST-PORTABLE HISTORY: Shortness of breath sob COMPARISON: 06/25/2016 FINDINGS: There is cardiomegaly with pulmonary venous congestion consistent with mild CHF.. Prior CABG There is dense consolidation in the right lower lobe. Small bilateral effusions noted.. No acute bony abnormalities. IMPRESSION: 1. Right lower lobe pneumonia. 2. CHF with small bilateral views
--- NOTE | 2016-06-26 12:43 | RADIOLOGY REPORT PS360 ---
ULTRASOUND RIGHT CHEST US GUIDED THORACENTESIS right chest ORDERING PHYSICIAN : Eric Mcallister MD PATIENT AGE: 80 years GENDER: Male INDICATION: RT PLEURAL EFFUSION TECHNIQUE: Ultrasound right chest COMPARISON: Ultrasound abdomen 06/22/2015. 2 view chest 116 ULTRASOUND RIGHT CHEST--------- Initial ultrasound reveals a large right pleural effusion with lower lobe seen centrally within this large basilar effusion On these initial images formed by technologist CHICHI and Dr. Celestin the most optimal site for thoracentesis was toes and at the posterior right back. ULTRASOUND GUIDED THORACENTESIS------- Following sterile preparation and local skin anesthesia as well as deep anesthesia placement a small less than 2 mm gasper was made in the skin through this the thoracentesis needle was advanced and pleural fluid encountered. A total of 2500 cc of fluid withdrawn from the right chest. Patient began significant coughing at this point as the right lung reexpanded and study was stopped at this point to avoid producing pneumothorax from his coughing with the needle in place. Subsequent post thoracentesis film shows significant improvement with majority of fluid removed from right chest IMPRESSION: Ultrasound right chest showed large right pleural effusion. Subsequent ultrasound guided thoracentesis performed with 2.5 L pleural fluid removed from right chest (Question very slightly blood-tinged fluid..lab analysis pending)
[2016-06-27 03:43] VITALS: BP 106/82
--- NOTE | 2016-06-27 07:47 | ACUTE CARE PROGRESS NOTE (QUA) ---
Progress Notes Subjective Date 06/27/16 Time 0744 Note Patient has no complaints. He denies shortness of breath this morning. He awakens easily. He does not appear tachypneic. Lungs have clear breath sounds anteriorly with improved aeration in the bases but still diminished in the bases. Heart rate is irregular Patient will be discharged today. Discharge to [facility] today. Objective Findings Last VS-Temp:98.9 B/P:106/82 Pulse:57 Resp:20 SaO2:96 OXYGEN Last weight lbs:125 oz:0 K.699 Method:Bed Scales Laboratory Tests 06/27/16 0605: Sodium 143, Potassium 5.1, Chloride 110 H, Carbon Dioxide 27, BUN 51 H, Creatinine 1.8 H, Estimated Creat Clear 25 L, Estimated GFR (MDRD) 36, Glucose 82, Calcium 8.5, Ferritin 51 Assessment/Plan Problem List 1. 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 Renal insufficiency Status: Chronic 3. Falls Qualifiers: Encounter type: initial encounter Qualified Code: W19.XXXA - Unspecified fall, initial encounter 4. Anemia Qualifiers: Anemia type: unspecified type Qualified Code: D64.9 - Anemia, unspecified 5. History of prosthetic aortic valve 6. CAD (coronary artery disease), [place] coronary artery Qualifiers: [place] vs. transplanted heart: [place] heart Associated angina: without angina Qualified Code: I25.10 - Atherosclerotic heart disease of [place] coronary artery without angina pectoris 7. Hx of CABG 8. Cardiomyopathy Qualifiers: Cardiomyopathy type: unspecified Qualified Code: I42.9 - Cardiomyopathy, unspecified 9. Pleural effusion Patient condition Improving This inpt stay is expected to cross 2 MNs from start of care Yes at 0747
--- NOTE | 2016-06-27 07:47 | ACUTE CARE PROGRESS NOTE (QUA) ---
Progress Notes Subjective Date 06/27/16 Time 0744 Note Patient has no complaints. He denies shortness of breath this morning. He awakens easily. He does not appear tachypneic. Lungs have clear breath sounds anteriorly with improved aeration in the bases but still diminished in the bases. Heart rate is irregular Patient will be discharged today. Discharge to [facility] today. Objective Findings Last VS-Temp:98.9 B/P:106/82 Pulse:57 Resp:20 SaO2:96 OXYGEN Last weight lbs:125 oz:0 K.699 Method:Bed Scales Laboratory Tests 06/27/16 0605: Sodium 143, Potassium 5.1, Chloride 110 H, Carbon Dioxide 27, BUN 51 H, Creatinine 1.8 H, Estimated Creat Clear 25 L, Estimated GFR (MDRD) 36, Glucose 82, Calcium 8.5, Ferritin 51 Assessment/Plan Problem List 1. 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 Renal insufficiency Status: Chronic 3. Falls Qualifiers: Encounter type: initial encounter Qualified Code: W19.XXXA - Unspecified fall, initial encounter 4. Anemia Qualifiers: Anemia type: unspecified type Qualified Code: D64.9 - Anemia, unspecified 5. History of prosthetic aortic valve 6. CAD (coronary artery disease), [place] coronary artery Qualifiers: [place] vs. transplanted heart: [place] heart Associated angina: without angina Qualified Code: I25.10 - Atherosclerotic heart disease of [place] coronary artery without angina pectoris 7. Hx of CABG 8. Cardiomyopathy Qualifiers: Cardiomyopathy type: unspecified Qualified Code: I42.9 - Cardiomyopathy, unspecified 9. Pleural effusion Patient condition Improving This inpt stay is expected to cross 2 MNs from start of care Yes at 0747
[2016-06-27] MEDS ORDERED: LASIX 40MG. TAB40 MG PO (07:48)
[2016-06-27] MEDS ORDERED: IRON325 M2 PO (07:49)
--- NOTE | 2016-06-27 07:56 | Discharge Summary ---
Demographics Admit date: 06/22/16 Discharge date: 06/27/16 Discharge diagnoses Problem List 1. CHF (congestive heart failure) 2. Renal insufficiency Status Chronic 3. Pleural effusion 4. Anemia 5. Falls 6. History of prosthetic aortic valve 7. CAD (coronary artery disease), [place] coronary artery 8. Hx of CABG 9. Cardiomyopathy 10. Atrial fibrillation History of present illness History of present illness 80-year-old male with history of hypertension, hyperlipidemia, aortic valve replacement with porcine valve, coronary artery bypass grafting presented to the emergency department after 2 falls at home. Patient is a poor historian. This morning there is no family at bedside. Patient reports 2 falls at home and he has bruising on the LEFT side of his face to show it. He reports that he was so weak he fell. He was brought to the ER last night family had reported increasing edema in the lower extremities as well. Patient denies ever having chest pain but admits to shortness of breath. In the emergency department his creatinine was elevated at 2.4. He did have 3+ edema in the lower extremities and this does extend to the knees, chest x-ray showed bilateral pleural effusions. Patient has been admitted and was given Lasix 80 mg IV in the ER. Nursing staff reports he has diuresed about 1600 ML's since then. He's been admitted for workup to this and primary working diagnosis is congestive heart failure. Patient was admitted and treatment was begun for acute congestive heart failure. Patient was placed on Lasix intravenously 1-2 times per day. Due to elevation in renal function urine output was monitored closely as were BUN and creatinine. Over the first 72 hours of hospitalization patient diuresed very well with improvement in both his breathlessness and lower extremity edema. Chest x-ray was repeated on June 25 which showed significant improvement in the LEFT pleural effusion from his congestive heart failure but a significant right-sided pleural effusion remained. Radiology was consult and for ultrasound-guided thoracentesis of the RIGHT pleural effusion which was performed on June 25. 2.5 L of pleural fluid was removed from the lung and patient had improvement in chest x-ray post procedure. Echocardiogram had been performed on June 22 and result was available by the and showed a normal ejection fraction of 45-55 percent. Patient was maintained on his bisoprolol, quinapril, amlodipine while hospitalized. Patient had elevated renal function on admission suggestive of some acute kidney injury. During his hospitalization his creatinine gradually decreased to a discharge creatinine of 1.8. Patient maintained good urine output. To avoid recurrent injury to the kidneys he will be placed on Lasix every other day at discharge. Patient was anemic on presentation. His anemia was microcytic. Iron studies were ordered. Results are pending at the time of this dictation. He will be started on iron supplement at discharge. Patient also had rate controlled atrial fibrillation which is not believed to be new. Because of his falls he was considered at high risk for complications from anticoagulants and therefore was not started on any additional anticoagulant. Patient will remain on aspirin 81 mg. Patient had multiple falls immediately prior to his admission. Nature of the falls was unclear as the patient was not a very good historian. Syncope was considered a possibility and he was maintained on a satellite project site monitor during his hospitalization. Monitoring did not reveal any significant bradycardia or arrhythmia. Physical therapy was consult to on June 25 and evaluated the patient and worked with him daily. retirement facility was suggested. Patient was agreeable to go to jail facility for brief period of time and I feel like this is best for him to get back on his feet. On June 27 patient was medically stable and discharged to [facility] jail facility for further rehab. Patient will follow-up in my office in 4 weeks Medications Medications: Discharge meds are as noted. Follow up Follow up in office in: 4 WEEKS with: Eric Mcallister MD at [phone]
--- NOTE | 2016-06-27 07:56 | Discharge Summary ---
Demographics Admit date: 06/22/16 Discharge date: 06/27/16 Discharge diagnoses Problem List 1. CHF (congestive heart failure) 2. Renal insufficiency Status Chronic 3. Pleural effusion 4. Anemia 5. Falls 6. History of prosthetic aortic valve 7. CAD (coronary artery disease), [place] coronary artery 8. Hx of CABG 9. Cardiomyopathy 10. Atrial fibrillation History of present illness History of present illness 80-year-old male with history of hypertension, hyperlipidemia, aortic valve replacement with porcine valve, coronary artery bypass grafting presented to the emergency department after 2 falls at home. Patient is a poor historian. This morning there is no family at bedside. Patient reports 2 falls at home and he has bruising on the LEFT side of his face to show it. He reports that he was so weak he fell. He was brought to the ER last night family had reported increasing edema in the lower extremities as well. Patient denies ever having chest pain but admits to shortness of breath. In the emergency department his creatinine was elevated at 2.4. He did have 3+ edema in the lower extremities and this does extend to the knees, chest x-ray showed bilateral pleural effusions. Patient has been admitted and was given Lasix 80 mg IV in the ER. Nursing staff reports he has diuresed about 1600 ML's since then. He's been admitted for workup to this and primary working diagnosis is congestive heart failure. Patient was admitted and treatment was begun for acute congestive heart failure. Patient was placed on Lasix intravenously 1-2 times per day. Due to elevation in renal function urine output was monitored closely as were BUN and creatinine. Over the first 72 hours of hospitalization patient diuresed very well with improvement in both his breathlessness and lower extremity edema. Chest x-ray was repeated on June 25 which showed significant improvement in the LEFT pleural effusion from his congestive heart failure but a significant right-sided pleural effusion remained. Radiology was consult and for ultrasound-guided thoracentesis of the RIGHT pleural effusion which was performed on June 25. 2.5 L of pleural fluid was removed from the lung and patient had improvement in chest x-ray post procedure. Echocardiogram had been performed on June 22 and result was available by the and showed a normal ejection fraction of 45-55 percent. Patient was maintained on his bisoprolol, quinapril, amlodipine while hospitalized. Patient had elevated renal function on admission suggestive of some acute kidney injury. During his hospitalization his creatinine gradually decreased to a discharge creatinine of 1.8. Patient maintained good urine output. To avoid recurrent injury to the kidneys he will be placed on Lasix every other day at discharge. Patient was anemic on presentation. His anemia was microcytic. Iron studies were ordered. Results are pending at the time of this dictation. He will be started on iron supplement at discharge. Patient also had rate controlled atrial fibrillation which is not believed to be new. Because of his falls he was considered at high risk for complications from anticoagulants and therefore was not started on any additional anticoagulant. Patient will remain on aspirin 81 mg. Patient had multiple falls immediately prior to his admission. Nature of the falls was unclear as the patient was not a very good historian. Syncope was considered a possibility and he was maintained on a custom marine canvas fabricator during his hospitalization. Monitoring did not reveal any significant bradycardia or arrhythmia. Physical therapy was consult to on June 25 and evaluated the patient and worked with him daily. intermediate facility was suggested. Patient was agreeable to go to alf facility for brief period of time and I feel like this is best for him to get back on his feet. On June 27 patient was medically stable and discharged to [facility] alf facility for further rehab. Patient will follow-up in my office in 4 weeks Medications Medications: Discharge meds are as noted. Follow up Follow up in office in: 4 WEEKS with: Eric Mcallister MD at [phone]
[2016-06-27 08:24] VITALS: BP 147/69
[2016-06-27 08:29] LABS: HEMOGLOBIN 10.3 g/dL (14.1-18.0); LYMPH # 1.2 K/mm3 (0.7-4.5); LYMPH % 13.7 % (10-50)
--- NOTE | 2016-06-27 09:03 | ACUTE CARE PROGRESS NOTE (QUA) ---
Progress Notes Subjective Date 06/27/16 Time 0856 Note 80 yo WM in NAD. Arouses easily and is breathing comfortably. Objective Findings Last VS-Temp:98.6 B/P:147/69 Pulse:78 Resp:20 SaO2:90 OXYGEN Last weight lbs:125 oz:0 K.699 Method:Bed Scales Exam General appearance: awake, no acute distress Cardiovascular: irregularly irregular, murmur Respiratory: Much improved breath sounds. Atelectasis improves with deep breathing. Reviewed: medications, vital signs, lab results Assessment/Plan Problem List 1. 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 Renal insufficiency Status: Chronic 3. Pleural effusion 4. Anemia Qualifiers: Anemia type: unspecified type Qualified Code: D64.9 - Anemia, unspecified 5. Falls Qualifiers: Encounter type: initial encounter Qualified Code: W19.XXXA - Unspecified fall, initial encounter 6. History of prosthetic aortic valve 7. CAD (coronary artery disease), [place] coronary artery Qualifiers: [place] vs. transplanted heart: [place] heart Associated angina: without angina Qualified Code: I25.10 - Atherosclerotic heart disease of [place] coronary artery without angina pectoris 8. Hx of CABG 9. Cardiomyopathy Qualifiers: Cardiomyopathy type: unspecified Qualified Code: I42.9 - Cardiomyopathy, unspecified 10. Atrial fibrillation Patient condition Stable Plan: Ok for discharge home. No anticoagulation due to falls. A. fib controlled on current meds. CAD stable. EF 45-50% with normally functioning bioprosthetic aortic valve. Follow up in 2 wks. This inpt stay is expected to cross 2 MNs from start of care Yes at 0902
--- NOTE | 2016-06-27 09:03 | ACUTE CARE PROGRESS NOTE (QUA) ---
Progress Notes Subjective Date 06/27/16 Time 0856 Note 80 yo WM in NAD. Arouses easily and is breathing comfortably. Objective Findings Last VS-Temp:98.6 B/P:147/69 Pulse:78 Resp:20 SaO2:90 OXYGEN Last weight lbs:125 oz:0 K.699 Method:Bed Scales Exam General appearance: awake, no acute distress Cardiovascular: irregularly irregular, murmur Respiratory: Much improved breath sounds. Atelectasis improves with deep breathing. Reviewed: medications, vital signs, lab results Assessment/Plan Problem List 1. 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 Renal insufficiency Status: Chronic 3. Pleural effusion 4. Anemia Qualifiers: Anemia type: unspecified type Qualified Code: D64.9 - Anemia, unspecified 5. Falls Qualifiers: Encounter type: initial encounter Qualified Code: W19.XXXA - Unspecified fall, initial encounter 6. History of prosthetic aortic valve 7. CAD (coronary artery disease), [place] coronary artery Qualifiers: [place] vs. transplanted heart: [place] heart Associated angina: without angina Qualified Code: I25.10 - Atherosclerotic heart disease of [place] coronary artery without angina pectoris 8. Hx of CABG 9. Cardiomyopathy Qualifiers: Cardiomyopathy type: unspecified Qualified Code: I42.9 - Cardiomyopathy, unspecified 10. Atrial fibrillation Patient condition Stable Plan: Ok for discharge home. No anticoagulation due to falls. A. fib controlled on current meds. CAD stable. EF 45-50% with normally functioning bioprosthetic aortic valve. Follow up in 2 wks. This inpt stay is expected to cross 2 MNs from start of care Yes at 0902
[2016-06-27 11:47] VITALS: BP 156/70
[2016-06-27 14:00] VITALS: BP 148/52
[2016-06-28 08:49] LABS: Iron 14 ug/dL (38-169); Iron Saturation 5 % (15-55); UIBC 255 ug/dL (111-343)
[2016-06-28 10:54] LABS: BODY FLUID MONONUCLEAR 18 %; BODY FLUID POLY 6 %; BODY FLUID RBC 3000 /mm3
[2016-06-28 10:57] LABS: BODY FLUID WBC 240 MM
[2016-09-12] MEDS ORDERED: FERROUS SULFAT325 M1 PO (23:28)
[2016-09-12] MEDS ORDERED: BISOPROLOL 5MG T5 MG PO (23:28)
[2016-09-12] MEDS ORDERED: AMLODIPINE BES10 MG PO (23:29)
[2016-09-12] MEDS ORDERED: FUROSEMIDE 20MG20 MG FT (23:29)
[2016-09-12] MEDS ORDERED: ASPIRIN ADULT L81 M3 PO (23:30)
[2016-09-12] MEDS ORDERED: ATORVASTATIN CA10 M1 PO (23:31)
[2016-09-12] MEDS ORDERED: LEVOTHYROXIN0.075 M1 PO (23:31)
== END 2016-06-27 14:10 | DRG 292 ==
LOC: ER 20:59 → 2ND 23:10 → ER 23:10 → 2ND 06-22 00:02
PROVIDERS: Emergency Medicine; Family Medicine; Internal Medicine Adolescent Medicine
DX: I50.43 Acute on chronic combined systolic (congestive) and diastolic (congestive) heart failure (principal); I42.9 Cardiomyopathy, unspecified; Z95.2 Presence of prosthetic heart valve; Z95.1 Presence of aortocoronary bypass graft; Z91.81 History of falling; I25.10 Atherosclerotic heart disease of native coronary artery without angina pectoris; D50.9 Iron deficiency anemia, unspecified